=== PATIENT | female | born 1955 | race Caucasian/White ===

== ENCOUNTER 2016-11-22 05:03 | Day surgery (SDC) | payer MEDICARE ==
[2016-11-18 09:58] LABS: HEMATOCRIT 32.1 % (36.0-48.0); HEMOGLOBIN 9.5 g/dL (12.0-16.0)
[2016-11-18 10:12] LABS: BUN (BLOOD UREA NITROGEN) 7 MG/DL (6-23); CALCIUM, SERUM 8.8 MG/DL (8.5-10.4); CHLORIDE, SERUM 102 MMOL/L (96-112); CO2 (CARBON DIOXIDE) 31 MMOL/L (24-34); CREATININE 0.85 MG/DL (0.55-1.02); GFR AFRICAN AMERICAN 86 ML/MIN (>=60); GFR NON AFRICAN AMERICAN 74 ML/MIN (>=60); GLUCOSE, SERUM 110 MG/DL (60-99); POTASSIUM, SERUM 3.8 MMOL/L (3.5-5.3); SODIUM, SERUM 140 MMOL/L (135-148)
--- NOTE | ~2016-11-22 | OP ---
Record Of Operation [facility] [address] [place]. [address] NAME: CARLENE HOYT : 55 STATUS : [facility]#: [id number] AGE: 60 ADM/REG DATE : 11/22/16 MR#: [id number] REPORT SERV DATE: 11/23/16 DICTATED BY: PAUL PENA DATE: 11/22/16 REPORT STATUS : Draft TRANSCRIBED BY: MODL DATE: 11/22/16 DATE OF PROCEDURE: 11/22/2016 PREOPERATIVE DIAGNOSIS: Left knee severe arthrofibrosis and adhesions. POSTOPERATIVE DIAGNOSIS: Left knee severe arthrofibrosis and adhesions. PROCEDURE: Left knee arthroscopy arthrofibrosis, lateral patellar retinacular release. SURGEON: Fabio Pena M.D. [employer]EDER: See chart. DESCRIPTION OF PROCEDURE: The patient was taken to the operating room and placed supine on the table in normal fashion without incident. General anesthetic was induced per the anesthesiologist. The patient was carefully positioned, padded, prepped, and draped in normal sterile fashion. Left lower extremity exsanguinated, tourniquet inflated to 350. Two standard were placed, medial one under direct visualization. the needle examination of the knee revealed abundant arthrofibrotic tissue meticulously debrided with shaver and sealed with a contour-type device. We changed portals with the same through the opposite side, be meticulous to cleansed down into the medial and lateral gutters as well as all around the patella in particular. The components were felt to be intact. Before and after pictures were taken. Instruments were removed. Wounds closed and dressed sterilely. The patient wakened and taken to the Postanesthesia Care Unit without incident. COMPLICATIONS: None. SPECIMENS: None. ESTIMATED BLOOD LOSS: Trace. WTB/MODL Fabio Pena M.D. / [id number] CC: Dex Rojas M.D.
[~2016-11-22 05:03] MED LIST: ACCUNE1 INH; AKWA TEARS OPH; ASAB PO; ASMANEX 30110 MCG IN; ASMANEX INH; ASPIRIN 81 MG PO; B121000P IM; B121000P IM/SC; BACTROCR TOP; BACTRONASA NAS; BIAXIN5 PO; CENTRUM TAB1 TAB PO; CORTEF5 PO; CYMBALTA60 PO; DOLOPHINE10 MG PO; DULERA 200 MCG/13 GM INH; DURA25 TOP; ELESTRIN TD; FLONASE NAS; FOLIC PO; GENTEA2 OPH; HUMI PO; HYDROCHLOROT12.5 MG PO; IMMUNE GLOBULIN IV; KEPPRA1000 MG PO; KLONO1 PO; MAGNESIUM OTC PO; MAGOX4 PO; MEP50TAB PO; METHATAB10 PO; MONODOX100 MG PO; MTX2.5 PO; NAIL-EX2.5 MG PO; NEUR300 PO; NEUR600 PO; NORV10 PO; NORV5 PO; P10 PO; P20 PO; PCET PO; PR25 PO; PREMPRO PO; PRIN20 PO; PROAIR HFA INH; PROBIOTIC PO; PROTONIX PO; Probiotic PO; REFRES1 T; SALAGEN5 M1 OR; SALAGEN5 M1 PO; SALAGEN5 MG PO; SEROQUEL200 MG PO; SINGULAIR1 PO; SOMATAB PO; TESS PO; TRAZODONE150 MG PO; TRAZODONE300 MG PO; V5 PO; VIB50 PO; VITAMIN B-12 IM; VITAMIN D OTC PO; VITAMIN D31000 UNIT PO; VITAMIN D400 UNI1 PO; ZANAFLEX 4 MG TA4 MG PO; ZANTAC150 MG PO; ZESTRIL20 MG PO; ZOFRAN ODT4 MG PO; ZOFRAN4 PO; ZOFRAN8 PO; ZYRTEC ALLGY10 MG PO; [UNRECOGNIZED DRUG - CODE] PO; [UNRECOGNIZED DRUG - OTHER]
== END 2016-11-22 21:20 | disposition home or self-care (01) ==
LOC: SDC 05:03
PROVIDERS: Specialist
PROC: 01N Peripheral Nervous System, Release (ICD-10-PCS; 2016-11-22)
PROC: 0SBD4ZZ Excision of Left Knee Joint, Percutaneous Endoscopic Approach (ICD-10-PCS; principal; 2016-11-22 06:45)
DX: M24.662 Ankylosis, left knee (principal); M23.8X2 Other internal derangements of left knee; D64.9 Anemia, unspecified; M19.90 Unspecified osteoarthritis, unspecified site; M06.9 Rheumatoid arthritis, unspecified; I10 Essential (primary) hypertension; K21.9 Gastro-esophageal reflux disease without esophagitis; J45.909 Unspecified asthma, uncomplicated; G47.33 Obstructive sleep apnea (adult) (pediatric); M79.7 Fibromyalgia; E66.01 Morbid (severe) obesity due to excess calories; Z79.899 Other long term (current) drug therapy; Z79.891 Long term (current) use of opiate analgesic; Z88.5 Allergy status to narcotic agent; Z91.040 Latex allergy status; Z88.2 Allergy status to sulfonamides; Z88.8 Allergy status to other drugs, medicaments and biological substances; Z90.49 Acquired absence of other specified parts of digestive tract; Z98.890 Other specified postprocedural states; Z86.73 Personal history of transient ischemic attack (TIA), and cerebral infarction without residual deficits; Z82.49 Family history of ischemic heart disease and other diseases of the circulatory system; Z68.41 Body mass index [BMI] 40.0-44.9, adult; Z88.0 Allergy status to penicillin
CPT/HCPCS: 80048; 85014; 85018; 88304; 93005; A9270-GY; J0330; J1720; J2175; J2250; J2274; J2405; J3010; J3370